=== PATIENT | female | born 1990 | race Caucasian/White ===

== ENCOUNTER 2018-06-10 20:22 | Outpatient (CLI) | END 2018-06-10 23:09 | disposition home or self-care (01) ==

== ENCOUNTER 2018-06-19 20:57 | Inpatient (IN) | END 2018-06-21 21:45 | disposition home or self-care (01) | DRG 781 ==

== ENCOUNTER 2018-08-30 20:08 | Outpatient (CLI) | END 2018-08-30 23:08 | disposition home or self-care (01) ==

== ENCOUNTER 2018-09-12 12:13 | Outpatient (CLI) | END 2018-09-12 20:37 | disposition home or self-care (01) ==

== ENCOUNTER 2018-10-14 12:00 | Inpatient (IN) | END 2018-10-17 20:00 | disposition home or self-care (01) | DRG 788 ==